=== PATIENT | female | born 1995 | race Caucasian/White ===

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

== ENCOUNTER 2017-09-06 21:55 | Emergency (ER) | payer OTHER ==
[2017-09-06] MEDS ORDERED: NORMAL SALINE 1000 ML 1,000 ML IV ONE (22:32)
[2017-09-06] MEDS ORDERED: IBUPROFEN 600 MG TABLET PO ONE (22:32)
[2017-09-06 23:33] LABS: ABSOLUTE LYMPHOCYTES (AUTO) 1.8 10^3/uL (0.5-4.7); ABSOLUTE MONOCYTES (AUTO) 0.5 10^3/uL (0.1-1.4); ABSOLUTE NEUT (AUTO) 5.1 10^3/uL (1.7-8.2); BASOPHILS % (AUTO) 0.3 % (0-2); EOSINOPHILS % (AUTO) 0.2 % (0-6); HEMOGLOBIN 12.1 g/dL (12.0-15.5); LYMPHOCYTES % (AUTO) 24.3 % (13-45); MEAN CORPUSCULAR HEMOGLOBIN 27.2 pg (27.0-33.4); MEAN CORPUSCULAR HGB CONC 33.7 g/dL (32.0-36.0); MEAN CORPUSCULAR VOLUME 81 fl (80-97); PLATELET COUNT 274 10^3/uL (150-450); RED BLOOD COUNT 4.46 10^6/uL (3.72-5.28); SEGMENTED NEUTROPHILS % (AUTO) 68.2 % (42-78); TOTAL CELLS COUNTED % (AUTO) 100 %; VENOUS BLOOD BASE EXCESS 1.8 mmol/L; VENOUS BLOOD HCO3 27.3 mmol/L (20-32); VENOUS BLOOD PCO2 46.3 mmHg (35-63); VENOUS BLOOD PH 7.39 (7.30-7.42); WHITE BLOOD COUNT 7.4 10^3/uL (4.0-10.5)
[2017-09-06 23:51] LABS: ANION GAP 11 (5-19); BLOOD UREA NITROGEN 10 mg/dL (7-20); CALCIUM 8.9 mg/dL (8.4-10.2); CARBON DIOXIDE 27 mmol/L (22-30); CHLORIDE 103 mmol/L (98-107); GLUCOSE 92 mg/dL (75-110); POTASSIUM 3.8 mmol/L (3.6-5.0); SODIUM 140.7 mmol/L (137-145)
[2017-09-07] MEDS ORDERED: LEVOFLOXACIN 750 MG TABLET PO ONE (00:04)
--- NOTE | 2017-09-07 00:59 | ER Document Report ---
ED General - General Chief Complaint: Shortness Of Breath Stated Complaint: SHORTNESS OF BREATH Time Seen by Provider: 09/06/17 22:31 Notes: Patient is a 21-year-old female who presents with 3 days of cough, shortness of breath and fever. Patient is currently taking azithromycin for a diagnosis of the left lower lobe pneumonia obtained on a chest x-ray 2 days ago. She states that despite taking antibiotics as directed her symptoms have not improved. She denies any hemoptysis, unilateral leg swelling, syncope, chest pain, vomiting or diarrhea. No history of similar symptoms in the past. Nothing improves or worsens her symptoms. She denies any tobacco smoking, history of asthma or COPD. TRAVEL OUTSIDE OF THE [place] IN LAST 30 DAYS: No - Related Data Allergies/Adverse Reactions: dicyclomine Allergy (Verified 11/09/16 20:53) Past Medical History - General Information source: Patient - Social History Smoking Status: Never Smoker Frequency of alcohol use: None Drug Abuse: None Lives with: Spouse/Significant other Family History: Reviewed & Not Pertinent, Other - endometriosis Renal/ Medical History: Denies: Hx Peritoneal Dialysis GI Medical History: Reports: Hx Irritable Bowel Past Surgical History: Reports: Hx Cholecystectomy Review of Systems - Review of Systems Notes: Constitutional: Positive for fever. HENT: Negative for sore throat. Eyes: Negative for visual changes. Cardiovascular: Negative for chest pain. Respiratory: Positive for cough and shortness of breath Gastrointestinal: Negative for abdominal pain, vomiting or diarrhea. Genitourinary: Negative for dysuria. Musculoskeletal: Negative for back pain. Skin: Negative for rash. Neurological: Negative for headaches, weakness or numbness. 10 point ROS negative except as marked above and in HPI. Physical Exam - Vital signs Interpretation: Tachycardic Notes: PHYSICAL EXAMINATION: GENERAL: Appears ill but in no acute distress HEAD: Atraumatic, normocephalic. EYES: Pupils equal round and reactive to light, extraocular movements intact, sclera anicteric, conjunctiva are normal. ENT: nares patent, oropharynx clear without exudates. Moderately dry mucous membranes. NECK: Normal range of motion, supple without lymphadenopathy LUNGS: Mildly diminished breath sounds at the left base. Mild tachypnea. Air movement otherwise appropriate throughout. No respiratory distress. HEART: Regular tachycardia without murmurs ABDOMEN: Soft, nontender, normoactive bowel sounds. No guarding, no rebound. No masses appreciated. EXTREMITIES: Normal range of motion, no pitting or edema. No cyanosis. NEUROLOGICAL: No focal neurological deficits. Moves all extremities spontaneously and on command. PSYCH: Normal mood, normal affect. SKIN: Warm, Dry, normal turgor, no rashes or lesions noted. Course - Re-evaluation Re-evalutation: 09/07/17 00:54 Patient was seen today for persistent cough, fever and moderate shortness of breath. She was seen 2 days ago and diagnosed with a left lower lobe pneumonia and started on azithromycin but has not improvement. This is not adequate coverage and the patient will be transitioned to levofloxacin. Her labs are otherwise unremarkable. Her crib 65 score is 0. She is appropriate for ongoing outpatient management. Vitals after fluid resuscitation and defervescent are within acceptable limits without hypoxia, tachypnea or ongoing tachycardia. At this time will discharge with return precautions and follow-up recommendations. Verbal discharge instructions given a the bedside and opportunity for questions given. Medication warnings reviewed. Patient is in agreement with this plan and has verbalized understanding of return precautions and the need for primary care follow-up in the next 24-72 hours. - Laboratory Result Diagrams: 09/06/17 23:00 09/06/17 23:00 - Diagnostic Test Radiology reviewed: Image reviewed, Reports reviewed Radiology results interpreted by me: 09/07/17 00:55 Chest x-ray: Opacity in the left lower lobe Discharge - Discharge Clinical Impression: Persistent cough Left lower lobe pneumonia Qualifiers: Pneumonia type: due to unspecified organism Qualified Code(s): J18.1 - Lobar pneumonia, unspecified organism Condition: Good Disposition: HOME, SELF-CARE Additional Instructions: You have been diagnosed with a pneumonia. It is very important that you take all of your antibiotics until they are gone even if you are feeling better. Discontinue azithromycin and begin the levofloxacin as prescribed. Please return to the emergency department immediately if you began having worsening shortness of breath, become confused, have worsening pain, pass out, have persistent vomiting that prevents you from being able to drink fluids for more than 12 hours, or have any other symptoms that are worrisome to you. Please follow-up with your primary care doctor in the next 1-2 days. Prescriptions: Levofloxacin [Levaquin 750 mg Tablet] 750 mg PO DAILY #4 tablet
[2017-09-07 02:10] VITALS: BP 103/67
--- NOTE | 2017-09-07 02:16 | RADIOLOGY REPORT (SQ) ---
EXAM DESCRIPTION: XR CHEST 2 VIEWS COMPLETED DATE/TME: 09/06/2017 22:32 CLINICAL HISTORY: 21 years, Female, fever, sob COMPARISON: None. NUMBER OF VIEWS: Two TECHNIQUE: PA and lateral LIMITATIONS: None. FINDINGS: Cardiac size is within normal limits. There is left lower lobe infiltrate most consistent with pneumonia. Suspect small amount of pleural fluid may be present. Right lung appears clear. IMPRESSION: Left lower lobe infiltrate concerning for pneumonia with probable small associated effusion 2010 [employer]- All Rights Reserved
== END 2017-09-07 01:25 | disposition home or self-care (01) ==
LOC: ER 21:55
DX: J18.1 Lobar pneumonia, unspecified organism (principal); R05 Cough; R06.02 Shortness of breath; R50.9 Fever, unspecified; R00.0 Tachycardia, unspecified; Z88.8 Allergy status to other drugs, medicaments and biological substances
CPT/HCPCS: 36415; 71046; 80048; 82803; 83605; 85025; 87040; 99285